=== PATIENT | female | born 1990 | race Caucasian/White ===

== ENCOUNTER → 2018-05-16 | Outpatient (CLI) | payer BC, OTHER | END | disposition home or self-care (01) | LOC: LAB 12:09 → LAB SHORT 12:09 | DX: R30.0 Dysuria (principal) | CPT/HCPCS: 87077; 87086; 87186 ==

== ENCOUNTER → 2018-06-19 | Outpatient (CLI) | payer BC, OTHER ==
[2018-06-20 23:09] LABS: CHLAMYDIA TRACHOMATIS, NAA Negative (Negative); NEISSERIA GONORRHOEAE, NAA Negative (Negative)
== END | disposition home or self-care (01) ==
LOC: LAB 09:27 → LAB SHORT 09:27
PROVIDERS: Family Medicine
DX: Z34.02 Encounter for supervision of normal first pregnancy, second trimester (principal); Z3A.15 15 weeks gestation of pregnancy
CPT/HCPCS: 87491; 87591

== ENCOUNTER → 2018-08-14 | Outpatient (CLI) | payer OTHER | END | disposition home or self-care (01) | LOC: LAB SHORT 15:57 → LAB 15:57 | DX: O99.89 Other specified diseases and conditions complicating pregnancy, childbirth and the puerperium (principal); R30.0 Dysuria; Z3A.23 23 weeks gestation of pregnancy | CPT/HCPCS: 87086 ==

== ENCOUNTER → 2018-11-06 | Outpatient (CLI) | payer OTHER ==
[~2018-11-06] MED LIST: ENOX100I SC; Verotin-Gr Cap1 EACH PO
== END | disposition home or self-care (01) ==
LOC: LAB 15:08 → LAB SHORT 15:08
DX: Z34.03 Encounter for supervision of normal first pregnancy, third trimester (principal); Z3A.35 35 weeks gestation of pregnancy
CPT/HCPCS: 87081; 87653

== ENCOUNTER 2018-11-13 13:15 | Inpatient (IN) | payer OTHER ==
[~2018-11-13] VITALS: Ht 160 cm; Wt 85.3 kg
[2018-11-13] MEDS ORDERED: Verotin-Gr Cap1 EACH PO (14:15)
[2018-11-13 16:27] LABS: BASOPHILS ABSOLUTE AUTO 0.03 K/mm3 (0.00-0.23); BASOPHILS PERCENT AUTO 0 % (0-2); EOSINOPHILS ABSOLUTE AUTO 0.03 K/mm3 (0.00-0.68); EOSINOPHILS PERCENT AUTO 0 % (0-6); Hematocrit 41.6 % (33.0-51.0); Hemoglobin 14.2 g/dL (11.5-16.0); IMMATURE GRAN ABSOLUTE AUTO 0.04 K/mm3 (0.00-0.10); IMMATURE GRAN PERCENT AUTO 0 % (0-1); LYMPHOCYTES ABSOLUTE AUTO 1.66 K/mm3 (0.84-5.20); LYMPHOCYTES PERCENT AUTO 15 % (21-46); MONOCYTES ABSOLUTE AUTO 0.95 K/mm3 (0.16-1.47); MONOCYTES PERCENT AUTO 8 % (4-13); Mean Corpuscular HGB 30.6 pg (26.0-34.0); Mean Corpuscular HGB Conc 34.1 g/dL (31.5-36.5); Mean Corpuscular Volume 90 fL (80-100); Mean Platelet Volume 9.9 fL (9.1-12.4); NEUTROPHILS ABSOLUTE AUTO 8.75 K/mm3 (1.96-9.15); NEUTROPHILS PERCENT AUTO 76 % (41-73); Platelet Count 208 K/mm3 (150-400); RDW Coefficient Variation 12.8 % (11.7-14.2); RDW Standard Deviation 41.8 fL (35.1-46.3); Red Blood Cell Count 4.64 M/mm3 (3.80-5.20); White Blood Cell Count 11.46 K/mm3 (4.00-11.30)
[2018-11-13 16:45] LABS: International Normalized Ratio 0.9; Prothrombin Time Results 9.6 Sec (9.7-11.5)
[2018-11-13 16:51] LABS: Alanine Aminotransfer (ALT/SGP 19 U/L (12-78); Albumin, Blood 3.1 g/dL (3.4-5.0); Albumin/Globulin Ratio 0.7 (0.8-1.8); Alk Phos 133 U/L (50-136); Anion Gap 8 mmol/L (6-16); Aspartate Aminotrans (AST/SGOT 22 U/L (12-37); Bilirubin, Total 0.4 mg/dL (0.1-1.0); Blood Urea Nitrogen 10 mg/dL (8-24); CO2, Blood 23 mmol/L (21-32); Calcium, Blood 8.7 mg/dL (8.5-10.1); Chloride, Blood 105 mmol/L (98-108); Creatinine, Blood 0.63 mg/dL (0.40-1.00); Globulin, Blood 4.5 g/dL (2.2-4.0); Glomerular Filtration Rate >60 (60-); Glucose, Blood 79 mg/dL (70-99); Potassium, Blood 3.9 mmol/L (3.5-5.5); Sodium, Blood 136 mmol/L (136-145); Total Protein, Blood 7.6 g/dL (6.4-8.2)
--- NOTE | 2018-11-13 21:46 | NUR ---
PT REPORTS NUMBNESS AND DIFFICULTY MOVING LLE. REPORTS PAIN 6/10 IN SAME LEG. LLE IS SWOLLEN AND COOL TO THE TOUCH, BUT REMAINS PINK. WILL CONTINUE TO MONITOR.
--- NOTE | 2018-11-14 07:25 | NUR ---
TALKED TO DR BANSAL IN [place]. OK WITH PAS STOCKING TO RT LEG ONLY. PT HAS NO BLOOD CLOT IN RT LEG, ONLY IN LT LEG. LT LEG IS DIFFENTLY BIGGER THAN THE RIGHT LEG. THIS IS SOME REDNESS TO LT FOOT. NOT ABLE TO FIND PEDAL PULSE TO LT FOOT, BUT GOT A BIOX ON THE LT INDEX TOE OF 99-100&, CAN FEED PEDAL PULSE IN RT FOOT EASILY. LT FOOT HAS +1 EDEMA WITH TRYING TO FIND PEDAL PULSE, LT LEGS TO CALF UP THE THIGH IS DIFFENTLY TIGHTER THAN THE RT LEG. PT IS TOUCHING/RUBBING HER LT THIGH SAYING NO PAIN TODAY. ENCOURAGED PT NOT TO TOUCH OR RUB HER LT LEG AT ALL. LT LEG IS PLACED ON A PILLOW, ENCOURAGED PT TO KEEP WIGGLING HER TOES ON THE LT AND RT SIDE, GAVE PT IN INCENTIVE SPRIOMETER TO USE AND SHOWED HER HOW TO USE IT.
[2018-11-14 08:19] LABS: Hematocrit 40.1 % (33.0-51.0); Hemoglobin 13.7 g/dL (11.5-16.0); Mean Corpuscular HGB 30.2 pg (26.0-34.0); Mean Corpuscular HGB Conc 34.2 g/dL (31.5-36.5); Mean Corpuscular Volume 89 fL (80-100); Mean Platelet Volume 9.9 fL (9.1-12.4); Platelet Count 186 K/mm3 (150-400); RDW Coefficient Variation 13.1 % (11.7-14.2); RDW Standard Deviation 42.5 fL (35.1-46.3); Red Blood Cell Count 4.53 M/mm3 (3.80-5.20); White Blood Cell Count 8.92 K/mm3 (4.00-11.30)
--- NOTE | 2018-11-14 08:45 | NUR ---
ASSUME PT CARE. PT REPORTS A DECREASE IN PAIN IN LEFT LEG SINCE YESTERDAY. REPORTS NO TINGLING IN LEFT LEG. PAS ON RIGHT LEG. USING I.S. Q 1 HOUR WHILE AWAKE. LISA POS WELL. DENIES PAIN AT THIS TIME. NO PEDAL PULSE PALPATED IN LEFT LEG. COLOR GOOD, CAP REFIL WNL. NOTED SWELLING ON LEFT LEG COMPARED TO RIGHT. DISCUSSED FINDINGS WITH DR. BANSAL.
--- NOTE | 2018-11-14 10:00 | NUR ---
UP TO BRP, VIA BEDSIDE COMMODE WITH 2 PERSON ASSIST. PT ABLE TO PUT VERY MINIMAL WEIGHT ON LEFT LEG TODAY. REPORTS THIS IS AN IMPROVEMENT. LINENS CHANGED. PT PROVIDED WIPES AND OTHER ITEMS FOR AM CARE. PT HAS NO OTHER CONCERNS OR NEEDS AT THIS TIME.
--- NOTE | 2018-11-14 11:22 | NUR ---
FOOT LOOKS VISIBILY THE SAME. NO CHANGE. PT DECLINES ANY INCREASE IN PAIN
--- NOTE | 2018-11-14 12:15 | NUR ---
PT C/O BACK ACHING FROM BEING IN BED. PT ASSISTED WITH REPOSITION AND KPAD PROVIDED FOR COMFORT. PT REPORTS RELIEF OF DISCOMFORT AT THIS TIME.
--- NOTE | 2018-11-14 12:58 | NUR ---
ASSUMED CARE REPT FROM Elayne BRENNAN RN, PT LYING IN BED STATES SHE IS HAVING MINIMAL PAIN IN LEFT LEG, SWELLING NOTED ON LEFT FOOT AND CALF SKIN WARM DRY, NOT PEDAL PULSE NOTED ON LEFT FOOT, RI FOOT + PEDAL PULSE EXTREMITIY WARM AND DRY, PT ABLE TO MOVE BOTH EXTREMITIES. CALL LIGHT WITHIN REACH
--- NOTE | 2018-11-14 14:15 | NUR ---
ATTEMPT TO DOPPLER LEFT PEDAL PULSE, UNABLE TO FIND PULSE, DR. BANSAL NOTIFIED, CONSULT REQUEST PER DR BANSAL WITH HOSPITALIST DR. VEGA CALLED
--- NOTE | 2018-11-14 14:40 | NUR ---
DR VEGA AT BEDSIDE, ATTEMPT TO DOPPLER LEFT FOOT, SEE MD NOTES, U/S ORDERED
--- NOTE | 2018-11-14 16:23 | NUR ---
POSITION CHANGE TO RT TILT, STATES BABY MOVING AROUND AND KICKING ALSO HAVING SOME BACK PAIN FROM LYING IN BED, MEDICATED WITH PAIN MEDS, EFM ON
--- NOTE | 2018-11-14 16:51 | NUR ---
REPT TO Analy GUSMAN RN
--- NOTE | 2018-11-14 18:12 | NUR ---
1700-PEDAL PULSE PALPABLE ON LEFT FOOT. PT STATES SWELLING AND PAIN HAVE DECREASED SINCE ADMIT. ICE PACK GIVEN TO PT FOR HER BACK. NO OTHER REQUESTS AT THIS TIME
--- NOTE | 2018-11-14 21:46 | NUR ---
LLE SWOLLEN AND PAINFUL. BILAT PEDAL PULSES PRESENT. LEFT THIGH WARM TO TOUCH, LEFT FOOT COOL TO TOUCH, BUT REMAINS PINK. L THIGH MEASURES 23 INCHES
--- NOTE | 2018-11-15 08:41 | NUR ---
PT USING INCENTIVE SPIROMETER.
--- NOTE | 2018-11-15 10:18 | NUR ---
PT UNCOMFORTABLE DURING U/C'S. ENCOURAGED HYDRATION. PT REPOSITIONED TO RIGHT LATERAL WITH LEFT LEG ELEVATED. DENIES TYLENOL AT THIS TIME FOR DISCOMFORT.
--- NOTE | 2018-11-15 12:44 | NUR ---
PT BOYFRIEND LEFT THE ROOM FOR THE AFTERNOON. PT REPORTS PAIN 2/10 AT THIS TIME. FLEXERIL GIVEN
--- NOTE | 2018-11-15 12:54 | NUR ---
PEDAL PULSES PALPABLE BILATERALLY THIS AM AT 0800 AND NOW. PT STILL NEEDS ASSISTANCE WITH MOVING LEFT LOWER EXTREMITY. L LEG PROPPED WITH PILLOWS IN BED.
--- NOTE | 2018-11-15 14:21 | NUR ---
PT COMPLETELY COMFORTABLE STATES SHE WOULD LIKE TO TRY AND SLEEP AND SHE WILL CALL ME WHEN SHE NEEDS ME.
--- NOTE | 2018-11-15 18:28 | NUR ---
PTS PEDAL PULSES PALPABLE THROUGHOUT SHIFT. PT STARTING TO MOVE TOES AND FEET BETTER. PT HAS BEEN REPOSITINING THROUGHOUT THE DAY FROM RIGHT TO LEFT TILTED POSITION.
--- NOTE | 2018-11-15 19:08 | NUR ---
Ice pack given
--- NOTE | 2018-11-15 22:56 | NUR ---
fresh ice pack given.
--- NOTE | 2018-11-16 02:21 | NUR ---
left thigh measurement 22.75in
--- NOTE | 2018-11-16 10:20 | NUR ---
0945- PT TWO PERSON STAND BY ASSIST TO BATHROOM PER VERBAL OK FROM DR TO AMBULATE IN ROOM. PT ONLY PUTS PARTIAL PRESSURE ON LEFT LEG. LEG STILL HEAVY AND HAS LIMITED RANGE OF MOTION PER PT. PT VOIDED IN BATHROOM, BRUSHED TEETH, CHANGED CLOTHES, AND WASHED BODY. LINENS CHANGED, ROOM MOPPED BY ENVIRONMENTAL SERVICES, PT STAND BY ASSIST BACK TO BED. SITS ON EDGE OF BED DOING RANGE OF MOTION EXERCISES WITH RIGHT LEG FOR 10 MIN. PT BACK TO BED WITH LEFT LEG ELEVATED ON PILLOWS, PAS TO RIGHT LEG. CALL LIGHT IN REACH. NO OTHER REQUESTS AT THIS TIME
--- NOTE | 2018-11-16 13:21 | NUR ---
FAMILY ARRIVED TO PT'S ROOM AT 1200 TO HAVE A SMALL BABY SHOWER WITH PT. PT DENIES ANY NEEDS AT THIS TIME. WILL CALL AFTER THE SHOWER IN ROOM FOR ANY NEEDS OF PAIN MEDICATION, FLEXERIL, AND STOOL SOFTNERS. REPORT GIVEN TO LISA PARDO
--- NOTE | 2018-11-16 15:30 | NUR ---
UP TO BATHROOM WITH ASSISTANCE, DENIES SOB OR ANY CHANGE IN CONDITION
--- NOTE | 2018-11-16 17:00 | NUR ---
STATES SUDDEN LOWER BACK PAIN, DENIES UC, MEDICATED WILL CONTINUE TO MONITOR, NO SOB, STATES PAIN 9/10 ABLE TO CONTINUE TO TALK THROUGH THE PAIN
--- NOTE | 2018-11-16 18:51 | NUR ---
EDUCATION DONE ON LOVENOX INJECTION, PATIENT GAVE OWN SHOT
--- NOTE | 2018-11-16 19:51 | NUR ---
L PEDAL PULSE NOT PALPABLE BY RN, BUT ABELTO HEAR FAINTLY ON DOPPLER. RN ABLE TO PALPATE AND DOPPLER L POSTERIOR TIBIAL PULSE. L FOOT PINK, CAPILLARY REFILL <3SECONDS, AND COOL TO TOUCH.
--- NOTE | 2018-11-17 00:15 | NUR ---
PT CALLED OUT REQUESTING ASSISTANCE TO GET UP TO BR. PT INFORMED PROMOTIONS ASSISTANT THAT SHE NEEDED THE COMMODE EBCAUSE SHE WOULD NOT BE ABLE TO WALK TO THE BATHROOM. PT TOLERATED GETTING IN AND OUT OF BED FOR VOIDING FAIR AND VERBALIZED BEING TOO PAINFUL TO MOVE VERY WELL. PT VERBALIZED TO RN, "I HOPE THEY DON'T SEND ME HOME TOMORROW BECAUSE I DON'T THINK I'LL BE ABLE TO GET AROUND". RN HELPED PT REPOSITION IN BED AND REAPPLIED PAS TO R LEG. L PEDAL PULSE PALPABLE BUT FAINT.
--- NOTE | 2018-11-17 07:35 | NUR ---
WALKED TO BATHROOM WITH ASSISTANCE AND DID AM CARE
--- NOTE | 2018-11-17 10:39 | NUR ---
SLEEPING OFF AND ON DENIES PAIN
--- NOTE | 2018-11-17 11:15 | NUR ---
up to bathroom with assist, denies pain
--- NOTE | 2018-11-17 12:26 | NUR ---
STATES HEART BURN TUMS GIVEN DENIES SOB OR ANY PAIN HAS BEEN SLEEPING
--- NOTE | 2018-11-17 12:38 | NUR ---
UP TO BATHROOM TO VOID WITH ASSISTANCE, PATIENT REFUSING SHOWER AT THIS TIME MAYBE LATER SHE SAID,
--- NOTE | 2018-11-17 14:03 | NUR ---
PT HAD PATIENT WALK IN [place] WITH WAKER, WANTS TO WORK WITH HER AGAIN TOMORROW IF SHE IS HERE, PATIENT DENIES PAIN, STATES TIRED FROM WALK, PT STATES PATIENT WILL NEED A ORDER FOR WALKER TO GO HOME LABS STILL PENDING
--- NOTE | 2018-11-17 15:15 | NUR ---
PERMISSION GIVEN FROM HARMONY TO TALK TO HER AUNT ALISON ABOUT HER CARE DISCUSSED POSSIBLY GOING TO STAY WITH HER GRANDMA WHO DRIVES, PATIWNT SCARED TO GO HOME, PREAUTHORIZATION BEING DONE ON FRONT WHEEL WALKER AT [facility] FOR PROBIBLE D/C TOMORROW, PATIENT HAS DENIED PAIN THIS SHIFT AND REFUSED ALL PAIN MEDS AND FLEXARIL, NO STOOL THIS SHIFT , PT AND RN ENCOURAGED PATIENT TO WALK IN [place] WITH WALKER, ENCOURAGED SHOWER BUT PATIENT STATES TIRED AT THIS TIME, PEDAL PULSES PALPATED,
--- NOTE | 2018-11-17 16:46 | NUR ---
up to bathroom with walker and walked in the ramos approx 30 feet with walker, lovenox ready to be picked up at [facility] per patient
--- NOTE | 2018-11-17 18:04 | NUR ---
IV IN FOR 4 DAYS, IV D/C PATIENT REFUSING RESTART OF IV AT THIS TIME
--- NOTE | 2018-11-18 08:41 | NUR ---
NO CHANGE IN MEASURMENTS OF LEG, UP WALKED TO BATHROOM WITH WALKER, STATES NO BM
--- NOTE | 2018-11-18 09:33 | NUR ---
PT HERE WALKING TO THE PATIENT
--- NOTE | 2018-11-18 12:11 | NUR ---
PATIENT DENIES PAIN, UP TO BATHROOM WITH WALKER BY HERSELF, MYRLAX GIVEN WITH HERBAL TEA
[2018-11-18] MEDS ORDERED: ENOX100I SC (13:19)
--- NOTE | 2018-11-18 14:24 | NUR ---
had large BM
--- NOTE | 2018-11-18 16:07 | NUR ---
STATES SHE HAS SOME PAIN FROM OVER WALKING TODAY FLEXERIL GIVEN, STATES FEELS BETTER WHEN LEG ON BED, NO CHANGE IN ASSESSMENT OF LEG, INSTRUCTIONS GIVEN FOR S&S TO LOOK FOR AT HOME AND WHEN TO CALL THE DOCTOR, STATES FEELS SAFE TO GO HOME
== END 2018-11-18 17:05 | disposition home or self-care (01) | DRG 832 ==
LOC: ER 13:15 → BC 19:49
PROVIDERS: Emergency Medicine; Internal Medicine; ADMIT Obstetrics & Gynecology
DX: O22.33 Deep phlebothrombosis in pregnancy, third trimester (principal); I82.412 Acute embolism and thrombosis of left femoral vein; I82.432 Acute embolism and thrombosis of left popliteal vein; Z3A.37 37 weeks gestation of pregnancy; Z37.0 Single live birth
CPT/HCPCS: 36415; 59025; 80053; 85025; 85027; 85520; 85610; 85730; 93926; 93971; 96372-59; 96374; 96375; 96376; 97110; 97116; 97162; 97530; 99285-25; J1170; J1650; J2405; J2550

== ENCOUNTER 2018-12-01 17:20 | Inpatient (IN) | payer OTHER ==
[~2018-12-01] VITALS: Ht 160 cm; Wt 81.2 kg
[2018-12-01 18:03] LABS: BASOPHILS ABSOLUTE AUTO 0.03 K/mm3 (0.00-0.23); BASOPHILS PERCENT AUTO 0 % (0-2); EOSINOPHILS ABSOLUTE AUTO 0.02 K/mm3 (0.00-0.68); EOSINOPHILS PERCENT AUTO 0 % (0-6); Hematocrit 38.2 % (33.0-51.0); Hemoglobin 13.3 g/dL (11.5-16.0); IMMATURE GRAN ABSOLUTE AUTO 0.03 K/mm3 (0.00-0.10); IMMATURE GRAN PERCENT AUTO 0 % (0-1); LYMPHOCYTES ABSOLUTE AUTO 2.23 K/mm3 (0.84-5.20); LYMPHOCYTES PERCENT AUTO 27 % (21-46); MONOCYTES ABSOLUTE AUTO 0.63 K/mm3 (0.16-1.47); MONOCYTES PERCENT AUTO 8 % (4-13); Mean Corpuscular HGB 30.2 pg (26.0-34.0); Mean Corpuscular HGB Conc 34.8 g/dL (31.5-36.5); Mean Corpuscular Volume 87 fL (80-100); Mean Platelet Volume 10.5 fL (9.1-12.4); NEUTROPHILS ABSOLUTE AUTO 5.38 K/mm3 (1.96-9.15); NEUTROPHILS PERCENT AUTO 65 % (41-73); Platelet Count 311 K/mm3 (150-400); RDW Coefficient Variation 12.6 % (11.7-14.2); RDW Standard Deviation 39.3 fL (35.1-46.3); Red Blood Cell Count 4.41 M/mm3 (3.80-5.20); White Blood Cell Count 8.32 K/mm3 (4.00-11.30)
[2018-12-02 09:32] LABS: BASOPHILS ABSOLUTE AUTO 0.02 K/mm3 (0.00-0.23); BASOPHILS PERCENT AUTO 0 % (0-2); EOSINOPHILS ABSOLUTE AUTO 0.01 K/mm3 (0.00-0.68); EOSINOPHILS PERCENT AUTO 0 % (0-6); Hematocrit 38.4 % (33.0-51.0); Hemoglobin 13.4 g/dL (11.5-16.0); IMMATURE GRAN ABSOLUTE AUTO 0.02 K/mm3 (0.00-0.10); IMMATURE GRAN PERCENT AUTO 0 % (0-1); LYMPHOCYTES PERCENT AUTO 22 % (21-46); MONOCYTES PERCENT AUTO 9 % (4-13); Mean Corpuscular HGB 30.2 pg (26.0-34.0); Mean Corpuscular HGB Conc 34.9 g/dL (31.5-36.5); Mean Corpuscular Volume 87 fL (80-100); NEUTROPHILS ABSOLUTE AUTO 4.72 K/mm3 (1.96-9.15); NEUTROPHILS PERCENT AUTO 69 % (41-73); Platelet Count 244 K/mm3 (150-400); RDW Coefficient Variation 12.7 % (11.7-14.2); RDW Standard Deviation 39.5 fL (35.1-46.3); Red Blood Cell Count 4.44 M/mm3 (3.80-5.20); White Blood Cell Count 6.87 K/mm3 (4.00-11.30)
--- NOTE | 2018-12-02 20:51 | NUR ---
ASSUMED CARE OF PATIENT AT 2000 FROM BAI[facility]E
[2018-12-03 05:15] LABS: Hematocrit 34.1 % (33.0-51.0); Hemoglobin 11.5 g/dL (11.5-16.0); Mean Corpuscular HGB 29.9 pg (26.0-34.0); Mean Corpuscular HGB Conc 33.7 g/dL (31.5-36.5); Mean Corpuscular Volume 89 fL (80-100); Platelet Count 221 K/mm3 (150-400); RDW Coefficient Variation 12.9 % (11.7-14.2); RDW Standard Deviation 41.5 fL (35.1-46.3); Red Blood Cell Count 3.85 M/mm3 (3.80-5.20)
--- NOTE | 2018-12-03 10:00 | NUR ---
AMBULATING IN HALLS PUSHING IN CRIB
--- NOTE | 2018-12-03 11:18 | NUR ---
[facility] FILLED OUT AND FAXED. PT AWARE.
--- NOTE | 2018-12-03 13:53 | NUR ---
ASSUME PT CARE. PT UP AMBULATING IN ROOM. LISA SELF CARE WELL. DISCUSSES THAT THIS IS "TRAINING DAY" ON CARE. PT HAPPY AND TALKATIVE. JUST FINISHED FEEDING. DISCUSSED THAT Chuck SANCHEZ RN WOULD BE IN LATER TODAY TO GIVE ASSISTANCE WITH BF AND CARE. PT VERBALIZES UNDERSTANDING AND WORKING ON PAPER NOW.
--- NOTE | 2018-12-03 14:51 | NUR ---
PT UP LISA SELF CARE WELL. DISCUSSED AMBULATING IN THE HALLS AT LEAST 3X TODAY. PT VERBALIZES UNDERSTANDING.
--- NOTE | 2018-12-03 14:59 | NUR ---
AMBULATING IN HALLS
--- NOTE | 2018-12-03 18:56 | NUR ---
NURSE CALLED DR SILVEIRA AT 1850 TO ASK ABOUT PT DISCHARGE ORDER THAT SPECIFIES THAT PT RX NEEDS TO BE READY PRIOR TO PT DC. Irma DE JESUS OKAY WITH PT SPENDING THE NIGHT DUE TO PHARMACY CLOSING AT THIS TIME. DR ACOSTA'S OFFICE SENT PRESCRIPTION IN "A FEW DAYS AGO" ACCORDING TO DR DE JESUS. SHE WOULD LIKE THE NURSE TO CALL PT'S HOME PHARMACY TO CONFIRM THAT PRECRIPTION IS AVAILABLE PRIOR TO PT DC.
== END 2018-12-04 11:25 | disposition home or self-care (01) | DRG 807 ==
LOC: OBS 17:20 → BC 17:20 → OBS 17:34 → BC 17:36
PROVIDERS: Anesthesiology; ADMIT Family Medicine
PROC: 3E0P7VZ Introduction of Hormone into Female Reproductive, Via Natural or Artificial Opening (ICD-10-PCS; 2018-12-01)
PROC: 10E0XZZ Delivery of Products of Conception, External Approach (ICD-10-PCS; principal; 2018-12-02)
PROC: 0KQM0ZZ Repair Perineum Muscle, Open Approach (ICD-10-PCS; 2018-12-02)
PROC: 3E0R3BZ Introduction of Anesthetic Agent into Spinal Canal, Percutaneous Approach (ICD-10-PCS; 2018-12-02)
DX: O22.33 Deep phlebothrombosis in pregnancy, third trimester (principal); Z37.0 Single live birth; O70.1 Second degree perineal laceration during delivery; Z3A.39 39 weeks gestation of pregnancy
CPT/HCPCS: 36415; 51702; 85025; 85027; 96372; J1650; J2001; J2590; J3010; J7120

== ENCOUNTER → 2019-10-22 | Outpatient (CLI) | payer OTHER ==
[2019-10-23 10:25] LABS: Candida species (DNA Probe) Positive (NEGATIVE); G. vaginalis (DNA Probe) Negative (NEGATIVE); T. vaginalis (DNA Probe) Negative (NEGATIVE)
[2019-10-24 08:09] LABS: HBSAG SCREEN Negative (Negative)
== END | disposition home or self-care (01) ==
LOC: LAB 16:05 → LAB SHORT 16:05
PROVIDERS: Family Medicine
DX: Z11.3 Encounter for screening for infections with a predominantly sexual mode of transmission (principal)
CPT/HCPCS: 86317; 87340; 87480; 87510; 87660